=== PATIENT | female | born 1960 | race Caucasian/White ===

== ENCOUNTER 2016-05-04 09:43 | Inpatient (IN) | payer OTHER ==
[~2016-05-04] VITALS: Ht 170.2 cm; Wt 110.2 kg
[~2016-05-04 09:43] MED LIST: BUPROPION HCL150 M2 PO; CLARITIN,ALAVAR10 MG PO; DESYREL100 MG PO; KLONOPIN0.5 M1 PO; LEXAPRO20 MG PO; ULTRAM50 MG PO; VALTREX1000 MG PO
[2016-05-04 10:40] VITALS: BP 123/71
[2016-05-04] MEDS ORDERED: PERCOCET 5/31 TABLET PO (14:32)
[2016-05-04 17:44] VITALS: BP 97/56
[2016-05-04 19:18] VITALS: BP 95/54
[2016-05-04 23:51] VITALS: BP 108/57
[2016-05-05 03:18] VITALS: BP 95/56
[2016-05-05 07:18] LABS: HEMATOCRIT 36.1 % (36.0-46.0); MCH 29.8 PG (29.0-34.0); MCHC 33.5 G/DL (30.0-36.0); MCV 88.9 FL (83-99); MEAN PLAT.VOLUME 9.2 uM^3 (9.5-12.4); PLATELET COUNT 165 K/uL (156-360); RBC DIS.WIDTH-CV 12.2 % (11.8-14.6); RBC DIS.WIDTH-SD 39.4 % (39-53); RED BLOOD COUNT 4.06 M/uL (3.80-5.20)
[2016-05-05 07:22] LABS: WHITE BLOOD COUNT 6.8 K/uL (4.1-10.2)
[2016-05-05 07:41] LABS: ANION GAP 7 MEQ/L (2-14); CHLORIDE 105 MEQ/L (99-109); GFR ESTIMATE (CALCULATED) 45 mL/min/; GLUCOSE 99 mg/dL (70-99); POTASSIUM 4.1 MEQ/L (3.7-5.4); SAMPLE HEMOLYSIS CHECK 0; SAMPLE ICTERIC CHECK 0; SAMPLE LIPEMIA CHECK 0; SODIUM 140 MEQ/L (136-147); UREA NITROGEN (BUN) 12 mg/dL (9-23)
[2016-05-05 08:10] VITALS: BP 106/68
[2016-05-05 15:54] VITALS: BP 116/68
[2016-05-06 00:20] VITALS: BP 110/66
[2016-05-06 08:00] VITALS: BP 134/65
[2016-05-06 17:36] VITALS: BP 94/54
[2016-05-06 23:01] VITALS: BP 110/78
[2016-05-07 08:01] VITALS: BP 107/61
[2016-05-07] MEDS ORDERED: ENDOCET 5-3251 EACH PO (09:13)
== END 2016-05-07 09:56 | disposition home or self-care (01) | DRG 658 ==
LOC: 2SOUTH 09:43 → 5EAST 10:12 → 2SOUTH 10:40 → 5EAST 17:42
PROVIDERS: Urology
PROC: 0TT04ZZ Resection of Right Kidney, Percutaneous Endoscopic Approach (ICD-10-PCS; principal; 2016-05-04)
DX: C64.1 Malignant neoplasm of right kidney, except renal pelvis (principal); E66.9 Obesity, unspecified; N28.89 Other specified disorders of kidney and ureter; G25.81 Restless legs syndrome; F32.9 Major depressive disorder, single episode, unspecified; Z90.49 Acquired absence of other specified parts of digestive tract; Z68.38 Body mass index [BMI] 38.0-38.9, adult
CPT/HCPCS: 80048; 85027; 88307; 94799; C9113; J0690; J1100; J1170; J2250; J2405; J2710; J3010; J7050; J7120